=== PATIENT | male | born 1975 | race Caucasian/White ===

== ENCOUNTER 2020-06-14 22:43 | Emergency (ER) | payer OTHER ==
[~2020-06-14] VITALS: Ht 190.5 cm; Wt 117.9 kg
[2020-06-14 23:14] LABS: URINE BILIRUBIN NEGATIVE (Negative); URINE BLOOD 3+ (Negative); URINE CLARITY CLEAR; URINE COLOR YELLOW; URINE GLUCOSE-RANDOM NEGATIVE (Negative); URINE KETONES NEGATIVE (Negative); URINE LEUKOCYTES-REFLEX NEGATIVE (Negative); URINE NITRITE-REFLEX NEGATIVE (Negative); URINE PROTEIN TRACE (Negative); URINE SPECIFIC GRAVITY >= 1.030 (1.005-1.030); URINE UROBILINOGEN 0.2 E.U./dl (0.2-1.0)
[2020-06-14 23:27] LABS: HEMATOCRIT 42.9 % (42.0-52.0); MCH 30.5 pg (26.0-34.0); MCHC 34.9 g/dL (28.0-37.0); MCV 87.5 fL (80.0-100.0); MPV 8.1 fl. (7.2-11.1); NUCLEATED RBCS 0 /100WBC; PLATELET COUNT* 298 thou/uL (150-400); RBC 4.91 mil/uL (4.50-6.00); RDW-CV 13.2 % (10.5-14.5); WBC 15.7 thou/uL (4.0-11.0)
[2020-06-14 23:37] LABS: CALCIUM 9.4 mg/dL (8.5-10.1); CREATININE 1.5 mg/dL (0.6-1.3); POTASSIUM 4.2 mmol/L (3.5-5.1)
[2020-06-14 23:47] LABS: ALBUMIN 4.3 g/dL (3.4-5.0); TOTAL BILIRUBIN 0.9 mg/dL (<0.1-1.0)
[2020-06-15 00:09] LABS: CASTS None Seen /LPF (None Seen); MUCUS 4-6 Moderate strn/LPF (None Seen); SQUAMOUS 4-10 Moderate /LPF (0-3); URINE RBC >20 Many /HPF (0-2); URINE WBC-REFLEX 6-15 Few /HPF (0-5)
[2020-06-15 00:10] LABS: BACTERIA-REFLEX 1-9 Few /HPF (None Seen); CRYSTALS None Seen /LPF (None Seen)
[2020-06-15 00:27] LABS: ABSOLUTE EOSINOPHILS 0.3 thou/uL (0.0-0.7); ABSOLUTE LYMPHOCYTES 2.7 thou/uL (0.8-5.3); ABSOLUTE MONOCYTES 0.6 thou/uL (0.0-1.2); ABSOLUTE NEUTROPHILS 12.1 thou/uL (1.6-8.1)
[2020-06-15 00:28] LABS: PLATELET ESTIMATE ADEQUATE
[2020-06-15] MEDS ORDERED: IBUPROFEN 800800 M1 PO (02:03)
[2020-06-15] MEDS ORDERED: NORCO 5-325 TA1 EAC2 PO (02:03)
[2020-06-15] MEDS ORDERED: FLOMAX0.4 MG PO (02:03)
[2020-06-15] MEDS ORDERED: DOXYCYCLINE 10100 M2 PO (02:03)
[2020-06-15] MEDS ORDERED: ZOFRAN ODT4 MG DISSOLVE (02:03)
[2020-06-15] MEDS ORDERED: XARELTO20 MG PO (02:11)
[2020-06-15 02:30] VITALS: BP 132/36
--- NOTE | 2020-06-15 17:47 | EKG ---
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: COLBY : 1975 Requested By: Trevor Berg Order Number: [id number] MD: Hao Amezquita Measurements Intervals Advance Rate: 92 P: [place]: QRS: 11 QRSD: 83 T: 12 QT: 347 QTc: 430 Interpretive Statements Atrial fibrillation Low voltage, precordial leads Baseline wander in lead(s) I No previous ECG available for comparison Electronically Signed On 06-15-2020 17:47:19 CDT by Hao Amezquita [email or web address] <ELECTRONICALLY SIGNED> By: Hao Amezquita MD, [facility] 06/15/20 1747 0156 0156 Hao Amezquita MD, [facility] /EPI
--- NOTE | 2020-06-15 17:47 | EKG ---
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
== END 2020-06-15 02:35 | disposition home or self-care (01) ==
LOC: M.ERS 22:43
PROVIDERS: Emergency Medicine Emergency Medical Services
DX: N20.0 Calculus of kidney (principal); I48.91 Unspecified atrial fibrillation; Z88.1 Allergy status to other antibiotic agents; Z88.0 Allergy status to penicillin

== ENCOUNTER 2021-07-19 09:26 | Inpatient (IN) | payer OTHER ==
[~2021-07-19] VITALS: Ht 190.5 cm; Wt 108.9 kg
--- NOTE | ~2021-07-19 | PROC ---
[address] [address] PROCEDURE REPORT Name: KATI WASSERMAN Room: [address] [facility]Joy#: [id number] Admission: 07/19/21 Attend Phys: Carlos Ann MD Discharge: 07/20/21 Date of : 73 Report #: [id number] THIS REPORT FOR: cc: Estefanía Reid Linda J. DO MICHAEL,Medical Records Staff ~ For GI report, please see the Provation report in Perceptive 7 content. By: 1601Medical Records Staff MICHAEL /JANELL
[~2021-07-19 09:26] MED LIST: DOXYCYCLINE 10100 M2 PO; FLOMAX0.4 MG PO; IBUPROFEN 800800 M1 PO; NORCO 5-325 TA1 EAC2 PO; XARELTO20 MG PO; ZOFRAN ODT4 MG DISSOLVE
[2021-07-19 09:35] VITALS: BP 147/84
[2021-07-19 10:49] LABS: URINE BLOOD TRACE (Negative); URINE CLARITY SL CLOUDY; URINE COLOR DARK YELLOW; URINE GLUCOSE-RANDOM NEGATIVE (Negative); URINE KETONES 1+ (Negative); URINE LEUKOCYTES NEGATIVE (Negative); URINE NITRITE NEGATIVE (Negative); URINE PROTEIN 1+ (Negative); URINE SPECIFIC GRAVITY >= 1.030 (1.005-1.030)
[2021-07-19 10:52] LABS: ABSOLUTE BASOPHILS 0.1 thou/uL (0.0-0.2); ABSOLUTE EOSINOPHILS 0.1 thou/uL (0.0-0.7); ABSOLUTE MONOCYTES 0.6 thou/uL (0.0-1.2); ABSOLUTE NEUTROPHILS 4.1 thou/uL (1.6-8.1); EOSINOPHILS 1.3 %; HEMATOCRIT 44.3 % (42.0-52.0); HEMOGLOBIN 15.3 gm/dL (14.0-18.0); LYMPHOCYTES 29.2 %; MCH 30.9 pg (26.0-34.0); MCHC 34.6 g/dL (28.0-37.0); MCV 89.5 fL (80.0-100.0); MONOCYTES 9.4 %; MPV 8.2 fl. (7.2-11.1); NUCLEATED RBCS 0 /100WBC; PLATELET COUNT* 279 thou/uL (150-400); POLYS 59.1 %; RBC 4.95 mil/uL (4.50-6.00); WBC 6.9 thou/uL (4.0-11.0)
[2021-07-19 11:01] LABS: URINE BILIRUBIN 3+ (Negative)
[2021-07-19 11:04] LABS: ICTOTEST (BILI CONFIRMATORY) Positive (Negative)
[2021-07-19 11:15] LABS: CALCIUM 9.6 mg/dL (8.5-10.1); CREATININE 1.3 mg/dL (0.6-1.3); POTASSIUM 3.8 mmol/L (3.5-5.1)
[2021-07-19 11:19] LABS: ALBUMIN 3.6 g/dL (3.4-5.0); TOTAL BILIRUBIN 7.6 mg/dL (<0.1-1.0); TOTAL PROTEIN 7.5 g/dL (6.4-8.2)
--- NOTE | 2021-07-19 14:05 | EKG ---
[place] [address] ELECTROCARDIOGRAM REPORT Name: KATI WASSERMAN Room: [address]#: [id number] Admission: 07/19/21 Attend Phys: Carlos Ann, Discharge: Date of : 73 Date of Service: 07/19/21 1005 Report #: [id number] THIS REPORT FOR: //name// [facility] ED Test Date: 2021-07-19 Test Time: 10:05:38 Pat Name: KATI WASSERMAN Department: Room: [facility] Gender: M [employer] Operator: CARLITOS : 1975 Requested By: Royal Mason Order Number: [id number] MD: Jean Paul Marion Measurements Intervals [place] Rate: 71 P: 40 MA: 175 QRS: 24 QRSD: 99 T: 30 QT: 355 QTc: 386 Interpretive Statements Sinus rhythm Compared to ECG 06/15/2020 01:56:48 Atrial fibrillation no longer present Electronically Signed On 07-19-2021 14:05:15 [employer] by Jean Paul Marion [email or web address] <ELECTRONICALLY SIGNED> By: Jean Paul Marion MD, FACC 07/19/21 1405 1005 1005 Jean Paul Marion MD, [facility] /EPI
[2021-07-19 16:39] VITALS: BP 147/84
[2021-07-19 20:10] VITALS: BP 131/90
[2021-07-19 23:30] VITALS: BP 117/65
[2021-07-20 04:05] VITALS: BP 111/62
[2021-07-20 04:45] LABS: CREATININE 1.3 mg/dL (0.6-1.3); POTASSIUM 3.9 mmol/L (3.5-5.1); TOTAL BILIRUBIN 3.6 mg/dL (<0.1-1.0); TOTAL PROTEIN 6.4 g/dL (6.4-8.2)
[2021-07-20 04:47] LABS: ABSOLUTE BASOPHILS 0.1 thou/uL (0.0-0.2); ABSOLUTE EOSINOPHILS 0.2 thou/uL (0.0-0.7); ABSOLUTE LYMPHOCYTES 3.1 thou/uL (0.8-5.3); ABSOLUTE MONOCYTES 0.7 thou/uL (0.0-1.2); ABSOLUTE NEUTROPHILS 4.6 thou/uL (1.6-8.1); BASOPHILS 0.7 %; EOSINOPHILS 1.9 %; HEMATOCRIT 40.5 % (42.0-52.0); HEMOGLOBIN 13.7 gm/dL (14.0-18.0); LYMPHOCYTES 35.8 %; MCH 30.5 pg (26.0-34.0); MCHC 33.8 g/dL (28.0-37.0); MCV 90.1 fL (80.0-100.0); MONOCYTES 8.3 %; NUCLEATED RBCS 0 /100WBC; PLATELET COUNT* 245 thou/uL (150-400); POLYS 53.3 %; RBC 4.49 mil/uL (4.50-6.00); RDW-CV 12.9 % (10.5-14.5); WBC 8.6 thou/uL (4.0-11.0)
--- NOTE | 2021-07-20 07:00 | NUR ---
Arrived to the floor at 2019. He did have nausea right he got here. He had an ERCP they pulled out stones and cleared the duct and a lot of bile and sludge.He is tolerating clear liquids and oral meds. LCTA he's on roomair sat 97%. He did wear his SCD's all night but took then off this am. He did void 600mls this am,tea colored urine. AST, ALT and bilirubin are elevated but improved from yesterday. He hasn't requested any pain meds. He has slept intermittenly.
[2021-07-20 08:00] VITALS: BP 123/89
[2021-07-20 12:10] VITALS: BP 110/72
--- NOTE | 2021-07-20 12:26 | NUR ---
Nutrition: Pt admitted with pain, gallstones. Consult received for wt loss d/t cholelithiasis. Pt stated he hadn't eaten much since last Saturday d/t abd pain caused by gallstones when eating. He has lost 10# in just this week. He said he needed to lose some wt anyway. He is eating well now, after stones removed. Good appetite. Wt: 240#. Heart healthy diet. Labs, meds noted. Low nutirtion risk.
[2021-07-20] MEDS ORDERED: LEVOFLOXACIN500 MG PO (13:07)
[2021-07-20 13:25] VITALS: BP 110/72
--- NOTE | 2021-07-20 14:49 | NUR ---
patient discharged, and to lobby via wheelchair. accompanied by nursing personnel.
--- NOTE | 2021-07-26 16:31 | CON ---
[address] [address] CONSULTATION Name: LISYKATI Randall Room: [address] [place] M.R.#: [id number] Admission: 07/19/21 Attend Phys: Carlos Ann MD Discharge: 07/20/21 Date of : 73 Report #: [id number] THIS REPORT FOR: cc: Estefanía Reid,Darvin Dowd DO ~ cc: Estefanía Reid DO DATE OF CONSULTATION: 07/19/2021 REASON FOR CONSULTATION: 1. Right upper quadrant pain, jaundice. ____ right upper quadrant pain, who has been compatible with symptomatic cholelithiasis and choledocholithiasis. 2. Obstructive jaundice secondary to #1 -- rule out cholangitis. RECOMMENDATIONS: 1. The patient appears to be hemodynamically stable at this time. Due to the fact that he is markedly jaundiced with some right upper quadrant pain and stones were noted within the common bile duct, we will proceed with ERCP, biliary sphincterotomy, stone extraction today. 2. He will then need to be referred for laparoscopic cholecystectomy to be done at his earliest convenience. I have discussed the nature, risks, benefits and alternatives of the procedure with the patient as well and he is agreeable to the same. HISTORY OF PRESENT ILLNESS: The patient is a pleasant 45-year-old white male who came into the hospital with complaints of right upper quadrant pain, nausea and vomiting and low-grade fevers which has been ongoing for 4 days now. He denies any complaints of any dysphagia or odynophagia, but does note postprandial pain. He does not have any hematemesis, melena or hematochezia. He has noted that his urine has gotten dark and his stools have become light. He has never had this kind of problem in the past. He was seen through the Emergency Room and found to be jaundiced and underwent testing, which revealed evidence of obstructive jaundice with common bile duct stones. He is admitted to the hospital for further evaluation and treatment. ALLERGIES: PENICILLINS. CURRENT MEDICATIONS: None. PAST MEDICAL HISTORY: Remarkable for a possible bout of atrial fibrillation, which was not substantiated. He has otherwise been healthy. SOCIAL HISTORY: He does not smoke. He does vape[place] [address] CONSULTATION Name: KATI WASSERMAN Room: [address]#: [id number] Admission: 07/19/21 Attend Phys: Carlos Ann MD Discharge: 07/20/21 Date of : 73 Report #: [id number] FAMILY HISTORY: Negative. PHYSICAL EXAMINATION: GENERAL: Pleasant 45-year-old gentleman who is awake and alert. CARDIOPULMONARY: Revealed a regular rhythm. LUNGS: Clear. ABDOMEN: Soft. It was tender in right upper quadrant. No rebound or guarding noted. LABORATORY TESTS: From the revealed a white count of 6.9, hemoglobin ____, platelet count 279,000, MCV is 89.5 and RDW is 13.0. His complete metabolic panel on admission revealed a sodium of 138, potassium 3.8, chloride 101, bicarb 30, his BUN 52, creatinine 1.3, GFR of 59. Total bilirubin 7.6, alkaline phosphatase ____, AST 249, ALT 565, and albumin 3.6. CT scan of the abdomen and pelvis revealed peripheral calculi noted within the gallbladder, which have calcium. There is a large stone in the gallbladder fundus, demonstrated calculi within the common bile duct with intra and extrahepatic ductal dilation. Pancreas appeared normal. The remainder of the CT scan was unrevealing. He does have some punctate nonobstructing calculi in the right kidney and he has a history of kidney stones in the past. DISCUSSION: At the present time, the patient appears to be symptomatic with cholelithiasis and choledocholithiasis. We will proceed with ERCP today and make further recommendations thereafter. <ELECTRONICALLY SIGNED> By: Darvin Berg DO 07/26/21 1631 1443 1819Darvin Berg DO /nt
== END 2021-07-20 15:00 | disposition home or self-care (01) | DRG 446 ==
LOC: M.ERS 09:26 → M.TBA-ER 13:43 → M.3W 13:45
PROVIDERS: Emergency Medicine; ADMIT Internal Medicine; ATTEND Internal Medicine
PROC: 0F798ZZ Dilation of Common Bile Duct, Via Natural or Artificial Opening Endoscopic (ICD-10-PCS; principal; 2021-07-19)
PROC: 0FC98ZZ Extirpation of Matter from Common Bile Duct, Via Natural or Artificial Opening Endoscopic (ICD-10-PCS; principal; 2021-07-19)
DX: K80.51 Calculus of bile duct without cholangitis or cholecystitis with obstruction (principal); Z20.822 Contact with and (suspected) exposure to COVID-19; F12.90 Cannabis use, unspecified, uncomplicated; R74.01 Elevation of levels of liver transaminase levels; E80.6 Other disorders of bilirubin metabolism; Z88.1 Allergy status to other antibiotic agents; Z88.0 Allergy status to penicillin

== ENCOUNTER → 2021-08-29 | Day surgery (SDC) | payer OTHER ==
[~2021-08-29] MED LIST changes: +LEVOFLOXACIN500 MG PO; +NOHOMEMEDICATIONS PO; +ROXICODONE5 M2 PO
--- NOTE | ~2021-08-29 | OP ---
[address] [address] OPERATIVE REPORT Name: KATI WASSERMAN Room: [facility].#: [id number] Admission: 08/29/21 Attend Phys: Diogenes Ignacio DO Discharge: Date of : 73 Report #: [id number] THIS REPORT FOR: cc: Estefanía Reid Linda J. DO Kramer, Adam P. DO ~ cc: Estefanía Reid DO, Gregory Vardakis, DO DATE OF SURGERY: 08/29/2021 Zen Norwood DO, PGY5 dictating operative report on behalf of Diogenes Ignacio DO PREOPERATIVE DIAGNOSIS: Cholelithiasis. POSTOPERATIVE DIAGNOSIS: Cholelithiasis. PROCEDURE PERFORMED: Laparoscopic cholecystectomy with immunofluorescence imaging. SURGEON: Diogenes Ignacio DO CO-SURGEON: Zen Norwood DO, PGY-5 CORK INSULATION SETTER: ____. ANESTHESIA: General and regional. ESTIMATED BLOOD LOSS: 20 mL SPECIMEN: Gallbladder. COMPLICATIONS: None. HISTORY OF PRESENT ILLNESS: The patient is a 45-year-old male who presented to the office with complaint of abdominal pain, worse with p.o. intake. Workup revealed cholelithiasis. We discussed laparoscopic cholecystectomy at length and he agreed to proceed with surgery. DESCRIPTION OF PROCEDURE: After consent was obtained, the patient was taken to the operating room and placed in the supine position. SCDs applied to bilateral lower extremities. Safety belt placed across the patient's waist. Two grams Ancef given for surgical prophylaxis. The patient underwent general endotracheal anesthesia without any complication. The patient's abdomen was prepped and draped in the standard sterile fashion. Timeout was performed to confirm patient and procedure. An 11 blade scalpel was used to make a vertical incision just above the umbilicus. Electrocautery [place] [address] OPERATIVE REPORT Name: KATI WASSERMAN JOSHUA Room: [facility]#: [id number] Admission: 08/29/21 Attend Phys: Diogenes Ignacio, DO Discharge: Date of : 73 Report #: [id number] dissected down to the level of fascia. Once the fascia was encountered, it was scored with electrocautery, grasped between 2 Kochers. Hemostat was used to bluntly into the peritoneum. Two stitches of 0 Vicryl placed on either side of the fascia, 5 mm Bertram trocar inserted into the abdomen. Insufflation was initiated. Intraabdominal contents were inspected. Three more 5 mm trocars were placed, one subxiphoid, two in the right upper quadrant. Liver was retracted cephalad and the gallbladder was grasped. There were multiple adhesions of omentum to the gallbladder. These were taken down with hook electrocautery. Once the gallbladder was free from adhesions, it was retracted further cephalad. Attention was turned towards Coleen's pouch. ICG was used to help visualize the cystic duct going down to the common bile duct, which was well away from our field of surgery. Electrocautery was used to score the visceral peritoneum over Coleen's pouch. This was carried laterally and medially. [place] dissector was used to circumferentially isolate the cystic duct and then just anterior to the cystic duct was isolated cystic artery, this was also circumferentially dissected free. Both structures were seen going up into the gallbladder and a critical view of safety was obtained. Clips were placed on both the cystic artery and cystic duct. Both structures were cut. Gallbladder was then carefully dissected off the bed of the liver using hook electrocautery. Once the gallbladder was fully removed, it was placed in laparoscopic EndoCatch bag. Liver bed was inspected and all bleeding was controlled with hook electrocautery. Clips were inspected. There was no further bleeding or bile leak. At this point, the right upper quadrant was irrigated. All fluid was suctioned out. Once hemostasis was completely ensured, all trocars were removed under direct visualization. Insufflation was let down. Gallbladder and its contents were removed from the supraumbilical trocar site. Supraumbilical fascia was reapproximated with 2 stitches of 0 Vicryl in a xdofdn-cm-hpcsc fashion. All skin incisions reapproximated with 4-0 Monocryl. All needle, instrument and sponge counts correct x2 at the end of the case. The patient was awoken from general anesthesia and transferred to PACU in stable condition. By: 1109 1155Alink Ignacio DO /nt
--- NOTE | 2021-08-31 15:07 | PATH ---
[address] [address] PATHOLOGY RPT PROCEDURE Name: KATI WASSERMAN Room: [facility]#: [id number] Admission: 08/29/21 Date of : 73 Discharge: Report #: [id number] Path Case #: [id number] [facility] Accession Number: [id number] . 01 Material submitted: . gallbladder - GALLBLADDER WITH CONTENTS . 01 Clinical history: . LAPAROSCOPIC CHOLECYSTECTOMY CALCULUS OF GALLBLADDER . 02 Diagnosis: Gallbladder with contents: - Chronic cholecystitis and cholelithiasis. (WILLY/db; 08/31/2021) LBQ 08/31/2021 1307 Local . 02 Electronically signed: . Naveen Fitzgerald MD, Pathologist NPI- [id number] . 01 Gross description: . Fixative: Formalin Labeled: Gallbladder with contents Specimen received: Intact gallbladder Dimensions: 3.3 x 2.2 x 1.8 cm Serosa: [place]-red to purple-garcia and smooth to slightly roughened Lymph node: None identified Mucosa: Velvety, bile-stained Average wall thickness: Up to 0.6 cm Calculi: Present displaying a bright yellow, nodular appearance Abnormalities: None identified . A1- Auto Garage Attendant body, fundus, and the cystic duct margin. ([facility]; 08/30/2021) NRI/NRI 08/30/2021 1527 Local . 02 Pathologist provided ICD-10: K80.10 . 02 CPT . 077315 Specimen Comment: A courtesy copy of this report has been sent to [phone], [phone] Specimen Comment: [phone] Specimen Comment: Report sent to / DR GUEVARA Performed at: [address] [address] PATHOLOGY RPT PROCEDURE Name: KATI WASSERMAN Room: [facility]#: [id number] Admission: 08/29/21 Date of : 73 Discharge: Report #: [id number] Path Case #: [id number] [address] [address], [place], [place] [id number] MD Stephon Her MD Phone: [phone] Performed at: [address] [address] Jigar Rossi, [place], [place] [id number] MD Naveen Fitzgerald MD Phone: [phone]
== END | disposition home or self-care (01) ==
LOC: M.SUR 06:39
PROVIDERS: ATTEND Surgery
DX: K80.10 Calculus of gallbladder with chronic cholecystitis without obstruction (principal); I48.91 Unspecified atrial fibrillation; Z98.890 Other specified postprocedural states; Z79.899 Other long term (current) drug therapy; Z79.01 Long term (current) use of anticoagulants; Z88.0 Allergy status to penicillin; Z88.8 Allergy status to other drugs, medicaments and biological substances; Z20.822 Contact with and (suspected) exposure to COVID-19